=== PATIENT | female | born 1965 | race Two or more races ===

== ENCOUNTER 2018-09-02 21:45 | Inpatient (IN) | payer OTHER ==
[~2018-09-02] VITALS: Ht 154.9 cm; Wt 55.3 kg
[2018-09-03 00:15] VITALS: BP 102/57
[2018-09-03 00:30] VITALS: BP 102/57
--- NOTE | 2018-09-03 00:30 | NUR ---
RN ADMITTING NOTES/DIRECT ADMIT DIRECT ADMIT FROM [facility]. RECEIVED REPORT FROM KOBE HER. Pt ARRIVED [place] [facility] [place]. Pt WAS SAFELY TRANSFERRED FROM [facility] TO ROOM BED. UPON RECEIVING Pt & PER REPORT FROM HENRY RN & EMT, Pt IS LETHARGIC BUT IS EASILY AWAKENED BY TOUCH AND BY NAME AND CAN ANSWER QUESTIONS. Pt IS A/OX3, ABLE TO RECALL NAME & , KNOWS THAT SHE IS IN A HOSPITAL, BUT UNCERTAIN OF CITY, Pt KNOWS CURRENT MONTH BUT COULD NOT RECALL CURRENT YEAR, Pt KNOWS JUAN CARLOS IS THE CURRENT [facility] PRESIDENT. Pt DRIFTS BACK AND FORTH TO SLEEP DURING QUESTIONING, AND IS A POOR HISTORIAN. IV ACCESS ON R SHOULDER #24G. Pt IS ON TELE MONITOR. NO S/S OF ACUTE DISTRESS OR SOB NOTED. Pt IS ON 2L NC. RESPIRATIONS EVEN AND UNLABORED. SAFETY MEASURES IN PLACE. BED LOW, LOCKED, HOB ELEVATED, SIDE RAILS UP, CALL LIGHT AND BEDSIDE TABLE WITHIN REACH. WILL CONTINUE TO MONITOR Pt's CONDITION AND SAFETY THROUGHOUT THE REST OF THE SHIFT.
[2018-09-03] MEDS ORDERED: ZOLPIDEM TARTRATE 5 MG TABLET PO PRN (03:00)
[2018-09-03] MEDS ORDERED: ACETAMINOPHEN 325 MG TABLET PO PRN (03:00)
[2018-09-03] MEDS ORDERED: Z GUARD REMEDY 2 OZ OINT TP PRN (03:00)
[2018-09-03] MEDS ORDERED: ONDANSETRON HCL/PF 4 MG/2 ML VIAL IVP PRN (03:00)
[2018-09-03] MEDS ORDERED: CEFTRIAXONE 1 G in IV D5W 50 ML IV SCH (03:00)
[2018-09-03] MEDS ORDERED: RIFAMPIN 600 MG in IV NS 0.9% 100 ML IV SCH (03:00)
[2018-09-03] MEDS ORDERED: MAGNESIUM HYDROXIDE 30 ML UDC PO PRN (03:00)
[2018-09-03] MEDS ORDERED: MAG HYDROX/AL HYDROX/SIMETH 30 ML UDC PO PRN (03:00)
[2018-09-03] MEDS ORDERED: IV D5/0.45 NACL 1,000 ML IV PRN (03:00)
[2018-09-03 04:00] VITALS: BP 115/58
[2018-09-03 04:52] VITALS: BP 115/58
[2018-09-03] MEDS ORDERED: CEFTRIAXONE 1 G in IV D5W 50 ML IV ONE ×2 (05:30→09:00)
[2018-09-03] MEDS ORDERED: RIFAMPIN 600 MG in IV NS 0.9% 100 ML IV ONE ×3 (05:30→08:00)
[2018-09-03] MEDS ORDERED: CEFTRIAXONE 1 G VIAL ONE (06:08)
--- NOTE | 2018-09-03 07:35 | NUR ---
RN CLOSING NOTES NO SIGNIFICANT CHANGES IN Pt's CONDITION. Pt REMAINS STABLE AT THIS TIME. NO S/S OF ACUTE DISTRESS OR SOB NOTED DURING THE NIGHT. ALL NEEDS MET AND ATTENDED TO. SAFETY MEASURES IN PLACE. TELE READING SR 83. WILL ENDORSE TO DAYSHIFT RN FOR Pt's DONNA.
--- NOTE | 2018-09-03 07:39 | NUR ---
MS/RN Patient received Patient received from carpet cleaner. Lethargic but arousable to touch. Complaining of 9/10 pain to lower back, medications not scheduled at this time. Safety measures in place, side rails X3 in upright position, call light within reach. Will continue to monitor and ensure safety.
[2018-09-03] MEDS ORDERED: METH10OR11 PO (07:55)
[2018-09-03] MEDS ORDERED: ACET325C5 PO (07:55)
--- NOTE | 2018-09-03 07:55 | NUR ---
MS/RN Rocephin Rocephin non administered for 0900 dose as medication was administered at 0644 by automat car attendant nurse. Order has since been changed by pharmacy.
[2018-09-03 08:00] VITALS: BP 110/60
[2018-09-03] MEDS ORDERED: MAG30ORA PO (08:04)
[2018-09-03] MEDS ORDERED: PANT40TA4 PO (08:30)
[2018-09-03] MEDS ORDERED: IPRA0.2S49 IH (08:30)
[2018-09-03] MEDS ORDERED: ALBU2.5V13 IH (08:30)
[2018-09-03] MEDS ORDERED: NITR0.4T48 SL (08:30)
--- NOTE | 2018-09-03 10:37 | NUR ---
WOUND CARE CONSULT: PT PRESENTS AMBULATORY AND CONTINENT WITH MULTIPLE SCARS ALL OVER HER BODY AND ESCHAR TO RT ARM, WOUND TO RT KNEE, PRESENT ON ADMISSION. RECOMMEND SURGICAL CONSULT. DR IVY NOTIFIED OF CONSULT REQUEST. WILL SEE PRN. JEFFREY IN AGREEMENT WITH PLAN OF CARE.
[2018-09-03 10:48] LABS: ALBUMIN 2.1 g/dL (3.4-5.0); BILIRUBIN,TOTAL 0.6 mg/dL (0.2-1.0); CALCIUM, SERUM 8.1 mg/dL (8.5-10.1); CREATININE 2.3 mg/dL (0.6-1.3); TOTAL PROTEIN, SERUM 8.3 g/dL (6.4-8.2)
--- NOTE | 2018-09-03 10:58 | NUR ---
MS/RN S/B Rogelio Lynn STATE WILDLIFE OFFICER Seen by STATE WILDLIFE OFFICER - nephrology and infectious diseases consults ordered. Patient admitted to STATE WILDLIFE OFFICER that she had last used heroin at 4p yesterday evening therefore patient to be monitored for signs of withdrawal.
[2018-09-03] MEDS ORDERED: IPRATROPIUM NEB FS 0.5 MG/2.5 ML AMPUL.NEB NEB PRN (11:00)
[2018-09-03] MEDS ORDERED: ALBUTEROL FS 2.5 MG/0.5 ML VIAL.NEB NEB PRN (11:00)
[2018-09-03 12:37] LABS: BASOPHILS % (AUTO) 0.2 % (0.0-2.0); EOSINOPHILS % (AUTO) 0.3 % (0.0-6.0); HEMATOCRIT 27 % (33-45); HEMOGLOBIN 8.7 g/dL (11.5-14.8); LYMPHOCYTES # (AUTO) 0.8 /CMM (0.8-4.8); LYMPHOCYTES % (AUTO) 7.4 % (20.0-44.0); MEAN CORPUSCULAR HGB CONC 32 g/dl (31.0-36.0); MEAN CORPUSCULAR VOLUME 86 fL (82-100); MONOCYTES # (AUTO) 0.3 /CMM (0.1-1.30); MONOCYTES % (AUTO) 2.8 % (2.0-12.0); NEUTROPHILS # (AUTO) 9.5 /CMM (1.8-8.9); NEUTROPHILS % (AUTO) 89.3 % (43.0-81.0); PLATELET COUNT (AUTO) 219 /CMM (150-450); RED BLOOD CELL COUNT(AUTO) 3.16 MIL/uL (4.0-5.2); WHITE BLOOD COUNT (AUTO) 10.6 K/uL (4.3-11.0)
--- NOTE | 2018-09-03 15:05 | NUR ---
MS/RN S/B Wound care Seen by wound care COMPUTER DISCOVERY TEACHER - right antecubital debridement carried out at bedside. Consent obtained prior to procedure and placed in front of medical record. Right knee to be dressed with xeroform and kerliex.
--- NOTE | 2018-09-03 18:20 | NUR ---
MS/RN End note Patient remains in stable condition. No signs of heroin withdrawal at this time. Remains disconnected from IV fluids at this time per request, stating that she wants a break. aware and in agreement. Wound culture to be collected with next wound dressing change. Will endorse to manager image.
--- NOTE | 2018-09-03 19:45 | NUR ---
RN OPENING NOTES RECEIVED REPORT FROM DAYSHIFT RN WING. FOUND Pt ASLEEP IN BED. NO S/S OF ACUTE DISTRESS OR SOB NOTED. Pt IS A/OX3, VERBAL, ABLE TO MAKE NEEDS KNOWN. RESPIRATIONS EVEN AND UNLABORED. IV ACCESS ON R SHOULDER #24G, IVF D5 1/2NS @ 75ML/HR. SAFETY MEASURES IN PLACE. BED LOW, LOCKED, HOB ELEVATED, SIDE RAILS UP, CALL LIGHT AND BEDSIDE TABLE WITHIN REACH. WILL CONTINUE TO MONITOR Pt's CONDITION AND SAFETY THROUGHOUT THE SHIFT.
[2018-09-03 20:00] VITALS: BP 112/58
--- NOTE | 2018-09-03 21:08 | NUR ---
RN NOTES SPOKE WITH DR TANG ON THE FLOOR. SAID OK FOR Pt TO GET MIDLINE. WILL CARRY OUT ORDER.
[2018-09-03] MEDS: HYDROCODONE/APAP 5/325MG 1 EACH TABLET PO PRN (21:32)
[2018-09-04] MEDS ORDERED: CEFTRIAXONE 2 G in IV D5W 100 ML IV SCH (06:00)
--- NOTE | 2018-09-04 06:50 | NUR ---
RN CLOSING NOTES NO SIGNIFICANT CHANGES IN Pt's CONDITION. Pt REMAINS STABLE AT THIS TIME. NO S/S OF ACUTE DISTRESS OR SOB NOTED DURING THE NIGHT. ALL NEEDS MET AND ATTENDED TO. SAFETY MEASURES IN PLACE. WILL ENDORSE TO DAYSHIFT RN FOR Pt's DONNA.
[2018-09-04] MEDS: IV D5/0.45 NACL 1,000 ML IV PRN ×2 (06:52→10:42)
[2018-09-04] MEDS: HYDROCODONE/APAP 5/325MG 1 EACH TABLET PO PRN (06:59)
--- NOTE | 2018-09-04 07:30 | NUR ---
MS/RN Patient received Patient received from fast food shift supervisor. A/O X4, vital signs stable, appears comfortable. Safety measurs in place, call light within reach. Will continue to monitor and ensure safety.
[2018-09-04 08:00] VITALS: BP 119/54
[2018-09-04] MEDS ORDERED: RIFAMPIN 600 MG in IV NS 0.9% 100 ML IV SCH (08:00)
[2018-09-04 08:04] VITALS: BP 119/59
[2018-09-04 08:35] LABS: BASOPHILS % (AUTO) 0.5 % (0.0-2.0); EOSINOPHILS % (AUTO) 0.6 % (0.0-6.0); HEMATOCRIT 25 % (33-45); HEMOGLOBIN 8.2 g/dL (11.5-14.8); LYMPHOCYTES # (AUTO) 0.6 /CMM (0.8-4.8); LYMPHOCYTES % (AUTO) 8.9 % (20.0-44.0); MEAN CORPUSCULAR HGB CONC 32 g/dl (31.0-36.0); MEAN CORPUSCULAR VOLUME 84 fL (82-100); MONOCYTES # (AUTO) 0.3 /CMM (0.1-1.30); MONOCYTES % (AUTO) 4.2 % (2.0-12.0); NEUTROPHILS # (AUTO) 5.9 /CMM (1.8-8.9); NEUTROPHILS % (AUTO) 85.8 % (43.0-81.0); PLATELET COUNT (AUTO) 185 /CMM (150-450); RED BLOOD CELL COUNT(AUTO) 3.01 MIL/uL (4.0-5.2); WHITE BLOOD COUNT (AUTO) 6.9 K/uL (4.3-11.0)
[2018-09-04 08:52] LABS: CALCIUM, SERUM 7.1 mg/dL (8.5-10.1); CREATININE 2.1 mg/dL (0.6-1.3); POTASSIUM 3.1 mmol/L (3.5-5.1)
--- NOTE | 2018-09-04 09:00 | NUR ---
MS/RN Late medication administration Unable to administer IVAB at scheduled time of 0800 as waiting for pharmacy to delivery. Pharmacy called, spoke with Kathy, stated that tech would be delivering medication soon. Rubén arellano at 0910.
--- NOTE | 2018-09-04 09:48 | NUR ---
MS/RN Dressing change Dressings to right knee and right upper arm changed as per orders. Wound culture obtained and sent to lab.
[2018-09-04] MEDS ORDERED: POTASSIUM CHLORIDE 20 MEQ POWDER PACKET NG SCH (10:30)
[2018-09-04] MEDS: POTASSIUM CL. PREMIX PERIPHER. 50 ML IV SCH ×3 (10:41→12:04)
--- NOTE | 2018-09-04 11:00 | NUR ---
MS/RN Potassium K+ LEVEL 3.1, orders obtained to replace with 30meq IV.
--- NOTE | 2018-09-04 11:30 | NUR ---
MS/RN S/B Tom Garrison TEST GRADER Seen by TEST GRADER - cardiology consult ordered to rule out endocarditis.
--- NOTE | 2018-09-04 12:53 | NUR ---
MS/RN S/B Dr Hayward Seen by Dr Hayward - bronchitis with possible congestive heart failure. 2D echo and chest x-ray ordered. Inhalers, steroids and antibiotics per internal medicine.
[2018-09-04 16:00] VITALS: BP 138/60
--- NOTE | 2018-09-04 18:16 | NUR ---
MS/RN End note Spoke with family memeber at patient's request while in room. Sister unhappy that patient is not receiving ativan and other narcotics given to her while a patient at [facility]. Explained to sister that ativan was ordered but was only to be given in the event that patient was showing signs of heroin withdrawal which at this time the patient was not. All other needs addressed, will endorse to database security administrator.
--- NOTE | 2018-09-04 18:41 | NUR ---
MS/RN Methadone Per patient, she usually receives methadone on a daily basis but is unsure of dose. RN in morning to call clinic and verify dose. -[facility]adone [facility] -[place] - -
[2018-09-04 20:00] VITALS: BP 136/61
--- NOTE | 2018-09-04 20:41 | NUR ---
RN MS OPENING NOTES RECEIVED PT IN BED, SLEEPING, EASILY AROUSED TO NAME CALL. BREATHING EVEN AND UNLABORED ON 2L O2 NC. IN NO APPARENT PAIN OR DISCOMFORT AT THIS TIME. MIDLINE ON THE LUE HL FLUSHING AND PATENT. BED IN LOWEST LOCKED POSITION, CALL LIGHT WITHIN REACH AT ALL TIMES. WILL CONTINUE TO MONITOR FREQUENTLY
[2018-09-04] MEDS ORDERED: KETOROLAC TROMETHAMINE INJ 30 MG/ML VIAL IM ONE (21:30)
[2018-09-04] MEDS ORDERED: LIDOCAINE 1%-EPI 1:100,000 20 ML VIAL TP ONE (22:30)
[2018-09-04 22:33] VITALS: BP 119/59
--- NOTE | 2018-09-05 06:19 | NUR ---
RN MS CLOSING NOTES PT REMAINS IN BED, AWAKE ALERT ORIENTED X4. BREATHING EVEN AND UNLABORED ON 2L O2 NC. NO COMPLAINT OF PAIN OR DISCOMFORT AT THIS TIME. MIDLINE ON THE LUE HL FLUSHING AND PATENT. BED IN LOWEST LOCKED POSITION, CALL LIGHT WITHIN REACH AT ALL TIMES. WILL ENDORSE TO DAY NURSE FOR DONNA.
--- NOTE | 2018-09-05 07:40 | NUR ---
MS/RN - Assessment Patient is awake, A/O x 4, no complaints overnight, afebrile, noted with wheezing and congestion, on oxygen at 2lpm via NC. Lab results pending at this time. Patient is ambulatory with assist, uses walker. Fall and seizure precautions maintained. Plan of care discussed with patient and in agreement. Will continue with current medical management.
[2018-09-05 08:00] VITALS: BP 133/66
[2018-09-05] MEDS ORDERED: ALBUTEROL FS 2.5 MG/0.5 ML VIAL.NEB NEB STA (08:51)
[2018-09-05] MEDS ORDERED: IPRATROPIUM NEB FS 0.5 MG/2.5 ML AMPUL.NEB NEB ONE (09:00)
--- NOTE | 2018-09-05 09:00 | NUR ---
MS/RN - S/b Hospitalist Seen and examined by Tom Garrison DNP with orders.
--- NOTE | 2018-09-05 09:30 | NUR ---
MS/RN - Methadone Clinic Errol from Methadone clinic called and reported that pt is on Methadone 85 mg po daily. Relayed to Tom Garrison DNP.
[2018-09-05] MEDS ORDERED: METH40TA PO (10:05)
--- NOTE | 2018-09-05 10:20 | NUR ---
MS/RN - Pulmonary consult Seen and evaluated by Dr. Calzada with no new order at this time.
[2018-09-05] MEDS: methylPREDNISolone SOD SUCC 125 MG/2ML VIAL IV SCH ×2 (10:38→16:16)
--- NOTE | 2018-09-05 11:25 | NUR ---
MS/RN - Nephrology consult Seen and examined by Dr. Brandon with no new order at this time.
[2018-09-05] MEDS: IPRATROPIUM NEB FS 0.5 MG/2.5 ML AMPUL.NEB NEB SCH ×4 (11:30→23:17)
[2018-09-05] MEDS: ALBUTEROL FS 2.5 MG/0.5 ML VIAL.NEB NEB SCH ×4 (11:30→23:17)
[2018-09-05 12:48] LABS: CALCIUM, SERUM 7.1 mg/dL (8.5-10.1); CREATININE 1.2 mg/dL (0.6-1.3); POTASSIUM 3.5 mmol/L (3.5-5.1)
[2018-09-05] MEDS ORDERED: LIDOCAINE 1%-EPI 1:100,000 20 ML VIAL TP ONE (13:00)
--- NOTE | 2018-09-05 13:25 | NUR ---
MS/RN - Debridement Right antecubital debridement done at bedside by NATALI Torres. Consent obtained prior to procedure. Patient tolerated procedure well. Wound specimen sent to lab for culture.
--- NOTE | 2018-09-05 14:16 | NUR ---
MS/RN - S/b Dr. Hayward Seen and examined by Dr. Hayward with orders, noted and carried out.
[2018-09-05 16:00] VITALS: BP 151/53
--- NOTE | 2018-09-05 18:07 | NUR ---
MS/RN - End of shift summary Patient breathing better, continue duoneb treatment and IV steroids, on oxygen at 2lpm via NC, denies pain. Will continue with plan of care.
--- NOTE | 2018-09-05 19:15 | NUR ---
KOBE cueto notes Pt is sitting in bed comfortably. Pt is alert and oriented X4. No s/s distress noted. NO SOB. Afebrile. Midline LUE is intact, patent and SL. Bed at low position and call light is within reach. Will continue to monitor.
--- NOTE | 2018-09-05 19:40 | NUR ---
KOBE mathews notes RT at the bed side giving breathing treatment.
[2018-09-05 20:00] VITALS: BP 142/61
--- NOTE | 2018-09-05 20:48 | NUR ---
RN medsurg notes Administered Ambien 5mg as ordered for sleeping per Pt request.
--- NOTE | 2018-09-05 22:40 | NUR ---
RN [facility] transfer notes Pt is alert and oriented X4. VS is stable. NO SOB. No nausea or vomiting. Breathing treatment has been given. PRN meds has been given and assisted all needs. LUE midline is intact, patent and SL. Transfer Pt by a wheelchair to [facility] 2 room 205 bed 2. Report given to Christina for DONNA.
[2018-09-05 23:00] VITALS: BP 152/38
--- NOTE | 2018-09-05 23:03 | NUR ---
PT ARRIVED TO UNIT REPORT PROVIDED BY KOBE JIMENEZ. PT AWAKE, A/OX3. PLACED ON 2L O2 VIA NC, BREATHING EVEN AND UNLABORED. DENIES SOB AND PAIN AT THIS TIME. IN NO ACUTE DISTRESS. SERINA MIDLINE PATENT AND INTACT. WALKER AT BEDSIDE. ORIENTED PT TO ROOM AND CALL LIGHT. HOB ELEVATED. BED IN LOW/LOCKED POSITION WITH CALL LIGHT IN REACH. BILAT. UPPER SIDE RAILS IN PLACE. BED ALARM ON FOR SAFETY. WILL CONTINUE TO MONITOR
[2018-09-06] MEDS: IPRATROPIUM NEB FS 0.5 MG/2.5 ML AMPUL.NEB NEB SCH ×6 (03:33→22:39)
[2018-09-06] MEDS: ALBUTEROL FS 2.5 MG/0.5 ML VIAL.NEB NEB SCH ×6 (03:33→22:39)
[2018-09-06] MEDS: LORAZEPAM INJ 2 MG/ML VIAL IV PRN (03:55)
--- NOTE | 2018-09-06 04:09 | NUR ---
MS/RN NOTES PT C/O RESTLESSNESS. RESTING FOR SOMETHING TO HELP HER RELAX. ADMINISTERED PRN ATIVAN ORDERED.
[2018-09-06 06:37] LABS: BASOPHILS % (AUTO) 0.3 % (0.0-2.0); HEMATOCRIT 27 % (33-45); HEMOGLOBIN 8.7 g/dL (11.5-14.8); LYMPHOCYTES # (AUTO) 1.4 /CMM (0.8-4.8); LYMPHOCYTES % (AUTO) 20.9 % (20.0-44.0); MEAN CORPUSCULAR HGB CONC 33 g/dl (31.0-36.0); MEAN CORPUSCULAR VOLUME 84 fL (82-100); MONOCYTES # (AUTO) 0.7 /CMM (0.1-1.30); MONOCYTES % (AUTO) 9.8 % (2.0-12.0); NEUTROPHILS # (AUTO) 4.8 /CMM (1.8-8.9); PLATELET COUNT (AUTO) 170 /CMM (150-450); RED BLOOD CELL COUNT(AUTO) 3.19 MIL/uL (4.0-5.2); WHITE BLOOD COUNT (AUTO) 6.9 K/uL (4.3-11.0)
--- NOTE | 2018-09-06 07:00 | NUR ---
MS/RN CLOSING NOTES PT ASLEEP, RESPONSIVE TO NAME. ON 1L O2 VIA NC, STILL WITH WHEEZES. TITRATING O2 TOLERATED. RT CALLED FOR BREATHING TX. PT HAVING SIGNIFICANT SOB UPON EXERTION. PT KEEPS TRYING TO GET OUT OF THE BED AND REFUSES TO USE THE BSC. MULTIPLE ATTEMPTS TO EDUCATE PT TO STAY IN BED TO PREVENT RESPIRATORY DISTRESS, BUT PT NON COMPLIANT. SERINA MIDLINE PATENT AND INTACT. DRESSING TO RIGHT AC C/D/I. HOB ELEVATED FOR MAXIMUM LUNG EXPANSION. BILAT. UPPER SIDE RAILS IN PLACE. BED IN LOW/LOCKED POSITION WITH CALL LIGHT IN REACH. BED ALARM ON FOR SAFETY. WILL ENDORSE TO ONCOMING SHIFT DONNA.
[2018-09-06 07:05] LABS: CALCIUM, SERUM 7.6 mg/dL (8.5-10.1); CREATININE 0.9 mg/dL (0.6-1.3); MAGNESIUM 1.6 mg/dL (1.8-2.4)
[2018-09-06 07:56] VITALS: BP 138/60
[2018-09-06] MEDS: methylPREDNISolone SOD SUCC 125 MG/2ML VIAL IV SCH ×2 (08:00→17:31)
--- NOTE | 2018-09-06 08:00 | NUR ---
MS/RN AM NOTES PT ASLEEP, RESPONSIVE TO NAME. ON 1L O2 VIA NC, STILL WITH WHEEZES. TITRATING O2 TOLERATED. RT CALLED FOR BREATHING TX. PT HAVING SIGNIFICANT SOB UPON EXERTION. PT KEEPS TRYING TO GET OUT OF THE BED AND REFUSES TO USE THE BSC. MULTIPLE ATTEMPTS TO EDUCATE PT TO STAY IN BED TO PREVENT RESPIRATORY DISTRESS, BUT PT NON COMPLIANT. SERINA MIDLINE PATENT AND INTACT. DRESSING TO RIGHT AC C/D/I. HOB ELEVATED FOR MAXIMUM LUNG EXPANSION. BILAT. UPPER SIDE RAILS IN PLACE. BED IN LOW/LOCKED POSITION WITH CALL LIGHT IN REACH. BED ALARM ON
[2018-09-06] MEDS: METHADONE HCL 10 MG TABLET PO SCH (11:23)
[2018-09-06] MEDS ORDERED: Magnesium 1GM/D5W 100ML PREMIX 100 ML IV SCH (11:30)
[2018-09-06] MEDS: POTASSIUM CHLORIDE 20 MEQ TAB.PRT.SR PO SCH ×3 (11:51→13:00)
[2018-09-06] MEDS ORDERED: NEOMY SULF/BACITRAC ZN/POLY 15 GM TUBE TP SCH (15:30)
[2018-09-06 15:42] VITALS: BP 126/62
--- NOTE | 2018-09-06 19:09 | NUR ---
PT AMBULATING IN/OUT OF HER ROOM WITHOUT OXYGEN ,HAVING SOB EVEN REQUESTING TO SMOKE.EXPLAINED THE RISKS OF SMOKING OUTSIDE SPECIALLY IN HER UNSTABLE CONDITION OF HAVING SEVERE SOB EVEN JUST WALKING IN/OUT OF HER ROOM.WILL ADMINISTER BREATHING TX.NOTIFIED R.T. CALL LIGHT PLACED WITHIN REACH.
--- NOTE | 2018-09-06 19:30 | NUR ---
RN OPEN NOTES RECEIVED PATIENT AWAKE IN BED. A/O X3. NO SIGNS OF DISTRESS OR DISCOMFORT. BREATHING EVEN AND UNLABORED. PATIENT CURRENTLY RECEIVING BREATHING TX. HAS SERINA MIDLINE, PATENT AND INTACT, NO SIGNS OF REDNESS OR INFILTRATION. BED IN LOW LOCKED POSITION WITH SIDE RAILS X2. CALL LIGHT WITHIN REACH. PATIENT ADVISED TO USE CALL LIGHT FOR ASSISTANCE. WILL CONTINUE TO MONITOR.
[2018-09-06 20:00] VITALS: BP 133/64
--- NOTE | 2018-09-06 22:41 | NUR ---
RN NOTES R.T NOTIFIED AND AT BEDSIDE. PATIENT CURRENTLY RECEIVING BREATHING TX. PATIENT WENT TO RESTROOM AND BECAME SEVERELY SOB. PATIENT ADVISED TO USE BEDSIDE COMMODE, EVEN A WALK TO THE RESTROOM MAKES HER VERY SOB. CALL LIGHT WITHIN REACH. WILL CONTINUE TO MONITOR.
--- NOTE | 2018-09-06 23:35 | NUR ---
RN NOTES DR. LUNSFORD NOTIFIED OF CONDITIONS. NEW ORDERS GIVEN FOR ABG AND CXR. WILL CARRY OUT ORDERS AND CONTINUE TO MONITOR.
--- NOTE | 2018-09-06 23:50 | NUR ---
RT NOTE RAPID COMM UNAVAILABLE AT THIS TIME. UNABLE TO TRANSFER TO [facility]. ABG RESULTS PLACED IN PATIENTS CHART. RESULTS RELAYED TO PRIMARY NURSE.
--- NOTE | 2018-09-07 02:18 | NUR ---
RN NOTES NOTIFIED DR. LUNSFORD OF CHANGE IN PATIENT CONDITION. PATIENT IS NON COMPLIANT, SHE GOT OUT OF BED AND BECAME VERY SOB AGAIN. SHE PRESENTS WITH AUDIBLE WHEEZING AND CONGESTION. SHE IS VERY DIAPHORETIC WITH LABORED BREATHING, RR 36 AND HR 125. RT WAS NOTIFIED AND BREATHING TX WAS GIVEN. RT SUGGEST PATIENT BE ON BIPAP OR CONTINUOUS BREATHING TX DUE TO PRESENT CONDITION. ADVISED DR. LUNSFORD AND ORDER GIVEN FOR LASIX 2OMG ONCE AND PRN BREATHING TREATMENTS FOR SOB. WILL CARRY OUT ORDERS AND CONTINUE TO MONITOR.
[2018-09-07] MEDS ORDERED: ALBUTEROL FS 2.5 MG/0.5 ML VIAL.NEB NEB PRN (02:30)
[2018-09-07] MEDS ORDERED: IPRATROPIUM NEB FS 0.5 MG/2.5 ML AMPUL.NEB NEB PRN (02:30)
[2018-09-07] MEDS ORDERED: FUROSEMIDE 20 MG/2 ML VIAL IV ONE (02:30)
[2018-09-07] MEDS: IPRATROPIUM NEB FS 0.5 MG/2.5 ML AMPUL.NEB NEB SCH ×6 (02:58→23:45)
[2018-09-07] MEDS: ALBUTEROL FS 2.5 MG/0.5 ML VIAL.NEB NEB SCH ×6 (02:58→23:45)
[2018-09-07 06:49] LABS: CALCIUM, SERUM 7.5 mg/dL (8.5-10.1); CREATININE 0.9 mg/dL (0.6-1.3); MAGNESIUM 1.6 mg/dL (1.8-2.4); POTASSIUM 3.7 mmol/L (3.5-5.1)
--- NOTE | 2018-09-07 07:23 | NUR ---
RN CLOSING NOTES PATIENT RESTING IN BED, EASILY AROUSABLE. A/O X3. NO SIGNS OF DISTRESS OR DISCOMFORT AT THIS TIME. BREATHING EVEN AND UNLABORED. ON 1LPM O2 VIA NC. HAS SERINA MIDLINE, PATENT AND INTACT, NO SIGNS OF REDNESS OR INFILTRATION. ALL NEEDS MET. NO SIGNIFICANT CHANGES THROUGH THE NIGHT. BED IN LOW LOCKED POSITION WITH SIDE RAILS X2. CALL LIGHT WITHIN REACH. PATIENT ADVISED TO USE CALL LIGHT FOR ASSISTANCE. BED ALARM ON. ENDORSED TO AM SHIFT FOR DONNA.
--- NOTE | 2018-09-07 07:30 | NUR ---
MS/RN OPENING NOTE PATIENT IN BED ASLEEP IN STABLE CONDITION. UPON REACH EASILY AROUSABLE. NO SIGNS OF ACUTE DISTRESS. NO COMPLAIN OF PAIN OR DISCOMFORT AT THIS TIME. ON OXYGEN 1LPM VIA NC. TOLERATING WELL. HOB ELEVATED. ALL NEEDS ATTENDED TO. CALL LIGHT WITHIN REACH. WILL CONTINUE TO MONITOR TO ENSURE SAFETY.
[2018-09-07 08:00] VITALS: BP 134/52
[2018-09-07] MEDS: METHADONE HCL 10 MG TABLET PO SCH (08:24)
[2018-09-07] MEDS: methylPREDNISolone SOD SUCC 125 MG/2ML VIAL IV SCH ×2 (08:25→16:44)
[2018-09-07] MEDS ORDERED: Magnesium 1GM/D5W 100ML PREMIX PIGGYBACK IV ONE (08:30)
[2018-09-07] MEDS ORDERED: FUROSEMIDE 40 MG/4 ML VIAL IV ONE (08:30)
--- NOTE | 2018-09-07 09:10 | NUR ---
MS/RN PATIENT'S MIDLINE NOTED LEAKING UPON FLUSHING. CALLED [facility] AND NOTIFIED AND REQUESTED FOR NEW MID LINE SECONDARY TO PATIENT HARD STICK FOR PIV INSERTION AND CURRENTLY ON IVP MEDICATIONS.
--- NOTE | 2018-09-07 11:56 | NUR ---
MS/RN SEEN AND EXAMINED BY DR RIBEIRO AND MADE AWARE PATIENT NOTED DESATURATING SOON SHE GETS UP TO USE RESTROOM AND EVEN IN BED NOTED WITH BREATHING WITH EXERTION. PER DR RIBEIRO ORDERS STAT CXR AND STAT ABG'S BREATHING TX NOW ORDERED. PATIENT AWARE.
--- NOTE | 2018-09-07 12:56 | NUR ---
RT NOTE RAPID COMM UNAVAILABLE AT THIS TIME. UNABLE TO TRANSFER TO [facility]. ABG RESULTS PLACED IN PATIENTS CHART. RESULTS RELAYED TO PRIMARY NURSE.
[2018-09-07 16:05] VITALS: BP 127/70
--- NOTE | 2018-09-07 18:31 | NUR ---
MS/RN CLOSING NOTE PATIENT IN BED IN STABLE CONDITION. A/O X 3. NO SIGNS OF ACUTE DISTRESS AT THIS TIME. NO COMPLAIN OF PAIN OR DISCOMFORT. ON OXYGEN VIA NC AT 1LPM TOLERATING WELL. ALL NEEDS ATTENDED TO. CALL LIGHT WITHIN REACH. WILL ENDORSE TO NEXT SHIFT FOR CONTINUITY OF CARE.
[2018-09-07] MEDS: LORAZEPAM INJ 2 MG/ML VIAL IV PRN (19:24)
--- NOTE | 2018-09-07 19:31 | NUR ---
MS RN RECEIVE PT IN BED A/O X 3, RESPIRATIONS EVEN AND UNLABORED, PT C/O OF BEING ANXIOUS ATIVAN GIVEN PRN IV, SAFETY MEASURES IN PLACE. WILL CONTINUE TO MONITOR
[2018-09-07 20:00] VITALS: BP 142/81
--- NOTE | 2018-09-07 20:24 | NUR ---
PT STATES SHE IS MORE CALM. PT NO S/S OF DISTRESS. ATIVAN IVP EFFECTIVE
[2018-09-08] MEDS: ALBUTEROL FS 2.5 MG/0.5 ML VIAL.NEB NEB SCH ×4 (03:43→16:16)
[2018-09-08] MEDS: IPRATROPIUM NEB FS 0.5 MG/2.5 ML AMPUL.NEB NEB SCH ×4 (03:43→16:17)
--- NOTE | 2018-09-08 06:07 | NUR ---
MS RN ASLEEP AND EASILY AWAKEN, 2LPM VIA NC O2 SAT 100%. RESPIRATION EVEN AND UNLABORED, KEPT CLEAN AND DRY AND COMFORTABLE. NEEDS ATTENDED AND ANTICIPATED, NURSING CARE RENDERED, OFFLOAD HEELS AND ELBOWS AT ALL TIMES. NO S/S OF DISTRESS, NO C/O PAIN. SAFETY MEASURES AT ALL TIMES. ENDORSE TO THE NEXT SHIFT.
[2018-09-08 06:34] LABS: CALCIUM, SERUM 7.4 mg/dL (8.5-10.1); CREATININE 0.9 mg/dL (0.6-1.3); MAGNESIUM 1.6 mg/dL (1.8-2.4); POTASSIUM 4.2 mmol/L (3.5-5.1)
--- NOTE | 2018-09-08 07:30 | NUR ---
RN OPENING NOTE PT WAS RECEIVED IN BED AT LOWEST AND LOCKED POSITION WITH SIDE RAILS UP X3, A/O X4 BREATHING EVEN AND UNLABORED ON RA WITH NO S/S OF ANY DISTRESS OR PAIN AT THIS TIME, IV IS PATENT AND INTACT, SAFETY PRECAUTIONS IN PLACE, CALL LIGHT WITHIN REACH, WILL MONITOR PT ACCORDINGLY Addendum: 09/08/18 at 0916 by DARIO PERKINS RN WRONG NOTE, SEE OTHER NOTE
--- NOTE | 2018-09-08 07:45 | NUR ---
RN OPENING NOTE PT WAS RECEIVED IN BED AT LOWEST AND LOCKED POSITION WITH SIDE RAILS UP X2, A/O X4 NOTED TO BE SHORT OF BREATH BUT SCHEDULED BREATHING TX NOTED AND DUE SOON, NO COMPLAINTS OF PAIN OR DISTRESS, IV IS PATENT AND INTACT, SAFETY PRECAUTIONS IN PLACE, CALL LIGHT WITHIN REACH, WILL MONITOR PT ACCORDINGLY.
[2018-09-08] MEDS: methylPREDNISolone SOD SUCC 125 MG/2ML VIAL IV SCH (08:00)
[2018-09-08] MEDS: METHADONE HCL 10 MG TABLET PO SCH (08:01)
[2018-09-08 08:06] VITALS: BP_SYST 136; BP_SYST 171; BP_DIAS 62; BP_DIAS 67
[2018-09-08] MEDS: Magnesium 1GM/D5W 100ML PREMIX 100 ML IV SCH ×2 (08:29→09:17)
[2018-09-08] MEDS ORDERED: CEFTRIAXONE 1 G in IV D5W 50 ML IV SCH (11:00)
[2018-09-08] MEDS ORDERED: AZITHROMYCIN 250 MG TABLET PO ONE (11:00)
[2018-09-08] MEDS ORDERED: predniSONE 20 MG TABLET PO SCH (11:30)
--- NOTE | 2018-09-08 13:35 | NUR ---
RN NOTE ANTIBIOTIC GIVEN AT THIS TIME DUE TO IT JUST BEING BROUGHT UP RECENTLY, WILL MONITOR ACCORDINGLY
[2018-09-08 16:03] VITALS: BP 135/55
--- NOTE | 2018-09-08 18:06 | NUR ---
DISCHARGE NOTE PT WAS D/C AT THIS TIME IN MEDICALLY STABLE CONDITION BACK HOME WITH HER SISTER GRISELDA. ALL DISCHARGE PAPERWORK AND EXITCARE WERE DISCUSSED AND SIGNED BY TRHE PATIENT. ALL PAPERWORK INCLUDING PRESCRIPTION WERE GIVEN. IV AND ID BAND WERE REMOVED. PHOTOS OF SKIN WOUNDS WERE TAKEN AND PLACED IN THE CHART. VS WNL, NO S/S OF ANY DISTRESS OR PAIN NOTED. PT WAS TAKEN DOWN BY ANUPAM COHEN AT THIS TIME [employer] WHEELCHAIR WHERE THEY LEFT VIA THEIR PRIVATE CAR. ALL NEEDS WERE ATTENDED TO DURING HER STAY.
== END 2018-09-08 18:00 | disposition home or self-care (01) | DRG 951 ==
LOC: TELE 23:58 → MED 09-03 10:58 → MEDSG2 09-05 22:52
PROVIDERS: ADMIT Nurse Practitioner Acute Care; ATTEND Nurse Practitioner Acute Care
PROC: 0JBG0ZZ Excision of Right Lower Arm Subcutaneous Tissue and Fascia, Open Approach (ICD-10-PCS; principal; 2018-09-03)
PROC: 05H633Z Insertion of Infusion Device into Left Subclavian Vein, Percutaneous Approach (ICD-10-PCS; 2018-09-04)
PROC: B547ZZA Ultrasonography of Left Subclavian Vein, Guidance (ICD-10-PCS; 2018-09-04)
PROC: 0KB90ZZ Excision of Right Lower Arm and Wrist Muscle, Open Approach (ICD-10-PCS; 2018-09-05)
DX: N17.0 Acute kidney failure with tubular necrosis (principal); J15.9 Unspecified bacterial pneumonia; I38 Endocarditis, valve unspecified; E87.1 Hypo-osmolality and hyponatremia; E83.42 Hypomagnesemia; J45.901 Unspecified asthma with (acute) exacerbation; S81.011A Laceration without foreign body, right knee, initial encounter; L03.113 Cellulitis of right upper limb; J44.9 Chronic obstructive pulmonary disease, unspecified; M19.90 Unspecified osteoarthritis, unspecified site; E86.0 Dehydration; I51.7 Cardiomegaly; L98.499 Non-pressure chronic ulcer of skin of other sites with unspecified severity; E86.1 Hypovolemia; E87.6 Hypokalemia; F11.10 Opioid abuse, uncomplicated; I10 Essential (primary) hypertension; F17.200 Nicotine dependence, unspecified, uncomplicated; D63.8 Anemia in other chronic diseases classified elsewhere; Z59.0 Homelessness; L08.9 Local infection of the skin and subcutaneous tissue, unspecified; S81.012A Laceration without foreign body, left knee, initial encounter; X58.XXXA Exposure to other specified factors, initial encounter; Y92.9 Unspecified place or not applicable; I70.0 Atherosclerosis of aorta; Z79.51 Long term (current) use of inhaled steroids; Z79.899 Other long term (current) drug therapy; B95.8 Unspecified staphylococcus as the cause of diseases classified elsewhere; B95.5 Unspecified streptococcus as the cause of diseases classified elsewhere
CPT/HCPCS: 36415; 36600; 70220-TC; 71045-TC; 76770-TC; 80048-TC; 80053-TC; 80061-TC; 82803-TC; 83735-TC; 84100-TC; 85025-TC; 86706; 86803; 87040-TC; 87070-TC; 87081-TC; 87186-TC; 87340; 87806; 93307-TC; 94799-TC; 97110-TC; 97116-TC; 97530-TC; A6402; A6403; A6407; G0378; J0696; J1885; J1940; J2060; J2930; J3475; J3480; J3490; J7030; J7060